=== PATIENT | male | born 1950 | race Caucasian/White ===

== ENCOUNTER 2018-02-26 05:44 | Inpatient (IN) | payer MEDICARE ==
[2018-02-26] MEDS ORDERED: Thrombin 5000 UNITS/5 ML VIAL ONE (06:24)
[2018-02-26] MEDS ORDERED: Sodium Chloride 0.9% 10 ML ONE (06:24)
[2018-02-26] MEDS ORDERED: CEFAZOLIN/Water 2 GM/20 ML SYRINGE ONE (06:32)
[2018-02-26 06:46] LABS: #Basophils 0.2 thou/uL (0.0-0.2); #Eosinphils 0.2 thou/uL (0.0-0.7); #Lymphocytes 4.5 thou/uL (1.20-3.40); #Neutrophils 4.2 thou/uL (1.40-6.50); %Basophils 1.6 % (0.0-1.0); %Eosinophils 2.5 % (0.0-10.0); %Monocytes 9.6 % (0.0-10.0); %Neutrophils 41.4 % (42.0-75.0); Hemoglobin 15.2 g/dL (14.0-18.0); Mean Corpuscular HGB CONC 33.3 g/dL (32.0-36.0); Mean Corpuscular Hemoglobin 31.7 pg (27.0-31.0); Mean Corpuscular Volume 95.1 fL (78.0-98.0); Mean Platelet Volume 9.3 fL (7.4-10.4); Platelet Count 187 thou/uL (130-400); Red Blood Cell (RBC) Count 4.81 mill/uL (4.70-6.10)
[2018-02-26 06:54] LABS: Anion Gap 11 mmol/L (10-20); BUN (Urea Nitrogen) 18 mg/dL (8.4-25.7); Calc. Creatinine Clearance 0 mL/min (70-130); Calcium 9.4 mg/dL (7.8-10.44); Carbon Dioxide 27 mmol/L (23-31); Chloride 107 mmol/L (98-107); Estimated GFR-MDRD 66; Glucose 94 mg/dL (80-115); Potassium 3.9 mmol/L (3.5-5.1); Sodium 141 mmol/L (136-145)
[2018-02-26] MEDS ORDERED: Ondansetron HCl/PF 4 MG/2 ML Vial IVP PRN ×2 (07:12→10:20)
[2018-02-26] MEDS ORDERED: Fentanyl 100 MCG/2 ML VIAL ONE ×3 (07:12→09:56)
[2018-02-26] MEDS ORDERED: Promethazine HCl 25 MG/ML VIAL IM PRN ×3 (07:12→13:38)
[2018-02-26] MEDS ORDERED: Promethazine HCl 25 MG/ML VIAL SLOW IVP PRN (07:12)
[2018-02-26] MEDS ORDERED: HYDROmorphone 2 MG/ML VIAL ONE ×2 (07:13→10:24)
--- NOTE | 2018-02-26 09:30 | OP ---
DATE OF PROCEDURE: 02/26/2018 SURGEON: Jeremías Chowdhury M.D. LEAD APPLICATIONS DEVELOPER: Magen Xiao PA-C PROCEDURE: L2 through L5 decompressive laminectomies, L2 through L5 posterolateral arthrodesis, pedi cedrick screw instrumentation L2 through L5, demineralized bone matrix, local morselized autograft. PROCEDURE IN DETAIL: The patient was brought into the operating room and intubated. He was rolled i n the prone position on gel-filled chest rolls. The previous incision was reopened and extended supe riorly exposing L2 through L5. After debridement of scar tissue, we performed additional decompressi ve laminectomy from L5 up through L2, completely decompressing the lateral recesses with particular a ttention to the right. Next, pedicle screws were placed at L2, L3, L4 and L5 bilaterally using later al fluoroscopic guidance. A francisco was secured between the screws, connected by nuts which were final t ightened. The wound was then extensively irrigated, immaculate hemostasis was secured. A combinatio n of demineralized bone matrix, local morselized autograft was laid over the laminar and posterolater al surfaces for the purpose of arthrodesis. Vancomycin powder was applied and the wound was closed i n anatomic layers over a drain.
[2018-02-26] MEDS ORDERED: Zolpidem Tartrate 5 MG TAB PO PRN (10:20)
[2018-02-26] MEDS ORDERED: diphenhydrAMINE 50 MG/ML VIAL IM PRN (10:20)
[2018-02-26] MEDS ORDERED: diphenhydrAMINE 25 MG CAP PO PRN ×2 (10:20→13:38)
[2018-02-26] MEDS ORDERED: diphenhydrAMINE 50 MG/ML VIAL IVP PRN ×2 (10:20→13:38)
[2018-02-26] MEDS ORDERED: HYDROmorphone 10 mg/100 ml CADD IVPB PRN (10:20)
[2018-02-26] MEDS ORDERED: Naloxone HCl 0.4 mg/ml Vial IV PRN (10:20)
[2018-02-26] MEDS ORDERED: Communication Order-Pharmacy FS SCH (10:30)
[2018-02-26 12:36] VITALS: BMI 30.4
[2018-02-26] MEDS ORDERED: Acetaminophen 325 MG TAB PO PRN (12:40)
[2018-02-26] MEDS ORDERED: Acetaminophen/Codeine 30-300mg Tablet PO PRN (12:42)
[2018-02-26] MEDS ORDERED: Ondansetron HCl/PF 4 MG/2 ML Vial IM PRN (13:38)
[2018-02-26] MEDS ORDERED: Mag-Al 1200 mg/1200 mg/30 ML UDCUP PO PRN (13:38)
[2018-02-26] MEDS ORDERED: Milk Of Magnesia 30 ML UDCUP PO PRN (13:38)
[2018-02-26] MEDS ORDERED: traMADol HCl 50 MG TAB PO PRN ×2 (13:38)
[2018-02-26] MEDS ORDERED: Promethazine HCl 12.5 MG SUPP PR PRN (13:38)
[2018-02-26] MEDS ORDERED: tiZANidine HCl 4 MG TAB PO PRN (13:38)
[2018-02-26] MEDS ORDERED: HYDROcodone/Acetaminophen 10/325 mg Tablet PO PRN ×2 (13:38)
[2018-02-26] MEDS ORDERED: Promethazine 25 MG TAB PO PRN (13:38)
[2018-02-26] MEDS ORDERED: CEFAZOLIN/Water 2 GM/20 ML SYRINGE SLOW IVP SCH (14:00)
[2018-02-26] MEDS: Sodium Chloride 0.9% 1,000 ML IV SCH (14:38)
--- NOTE | 2018-02-26 15:10 | PDOC.PN ---
- Subjective Encounter Start Date: 02/26/18 Encounter Start Time: 15:41 -: old records requested/rev Patient seen and examined. No new complaints. consulted for medical management - Objective Resuscitation Status: Resuscitation Status FULL:Full Resuscitation MAR Reviewed: Yes Vital Signs & Weight: Vital Signs (12 hours) Temp Pulse Resp BP Pulse Ox 02/26/18 12:45 97 02/26/18 12:10 97.4 F L 72 18 171/93 H 97 Weight Weight 200 lb Result Diagrams: 02/26/18 06:31 02/26/18 06:31 Phys Exam - Physical Examination Constitutional: NAD HEENT: PERRLA, moist MMs, sclera anicteric Neck: no JVD, supple Respiratory: no wheezing, no rales, no rhonchi Cardiovascular: RRR, no significant murmur, no rub Gastrointestinal: soft, non-tender, no distention, positive bowel sounds Musculoskeletal: no edema, pulses present Neurological: non-focal, normal sensation Lymphatic: no nodes Psychiatric: normal affect, A&O x 3 Skin: no rash, normal turgor Dx/Plan (1) S/P laminectomy Code(s): Z98.890 - OTHER SPECIFIED POSTPROCEDURAL STATES Status: Acute (2) Alcohol abuse Code(s): F10.10 - ALCOHOL ABUSE, UNCOMPLICATED Status: Chronic (3) Dyslipidemia Code(s): E78.5 - HYPERLIPIDEMIA, UNSPECIFIED Status: Chronic (4) H/O: CVA (cerebrovascular accident) Code(s): Z86.73 - PRSNL HX OF TIA (TIA), AND CEREB INFRC W/O RESID DEFICITS Status: Chronic (5) Lumbar stenosis Code(s): M48.06 - SPINAL STENOSIS, LUMBAR REGION * DO NOT USE * Status: Chronic (6) Obesity (BMI 30.0-34.9) Code(s): E66.9 - OBESITY, UNSPECIFIED Status: Chronic - Plan cont current plan of care * change coreg 12.5 mg po bid * change lisinopril 20 mg po daily * add lipitor, lexapro, gabapentin as per home dose * code status- full code * medication reviewed as below * symptomatic treatment * PT/OT as per primary team * post operative care as per surgeon. Review of Systems - Review of Systems ENT: negative: Ear Pain, Ear Discharge, Nose Pain, Nose Discharge, Nose Congestion, Mouth Pain, Mouth Swelling, Throat Pain, Throat Swelling, Other Respiratory: negative: Cough, Dry, Shortness of Breath, Hemoptysis, SOB with Excertion, Pleuritic Pain, Sputum, Wheezing Cardiovascular: negative: chest pain, palpitations, orthopnea, paroxysmal nocturnal dyspnea, edema, light headedness, other Gastrointestinal: negative: Nausea, Vomiting, Abdominal Pain, Diarrhea, Constipation, Melena, Hematochezia, Other Genitourinary: negative: Dysuria, Frequency, Incontinence, Hematuria, Retention , Other Musculoskeletal: negative: Neck Pain, Shoulder Pain, Arm Pain, Back Pain, Hand Pain, Leg Pain, Foot Pain, Other Skin: negative: Rash, Lesions, Miguel, Bruising, Other - Medications/Allergies Allergies/Adverse Reactions: Allergies Allergy/AdvReac Type Severity Reaction Status Date / Time No Known Allergies Allergy Verified 02/26/18 12:31 Medications: Current Medications Acetaminophen (Tylenol) 650 mg PO Q4H PRN PRN Reason: Headache/Fever or Pain Al Hydroxide/Mg Hydroxide (Maalox) 30 ml PO Q4H PRN PRN Reason: Heartburn or Indigestion Atorvastatin Calcium (Lipitor) 10 mg PO HS [facility] Atorvastatin Calcium (Lipitor) 10 mg PO HS [facility] Carvedilol (Coreg) 12.5 mg PO BID-WM [facility] Cefazolin Sodium (Ancef) 2 gm SLOW IVP Q8HR [facility] Stop: 02/26/18 22:01 Last Admin: 02/26/18 14:39 Dose: 2 gm Cyanocobalamin (Vitamin B-12) 1,000 mcg PO DAILY [facility] Diphenhydramine HCl (Benadryl) 25 mg IM Q3H PRN PRN Reason: Itching Diphenhydramine HCl (Benadryl) 25 mg PO Q6H PRN PRN Reason: Itching Diphenhydramine HCl (Benadryl) 25 mg IVP Q6H PRN PRN Reason: Itching Folic Acid (Folvite) 1 mg PO DAILY [facility] Gabapentin (Neurontin) 300 mg PO TID [facility] Hydromorphone HCl (Dilaudid Cadd) 0 mg IVPB INF PRN PRN Reason: Pain Sodium Chloride (Normal Saline 0.9%) 1,000 mls @ 75 mls/hr IV .[id number] [facility] Last Admin: 02/26/18 14:38 Dose: 1,000 mls Iron/Minerals/Multivitamins (Theragran M) 1 tab PO DAILY [facility] Lisinopril (Zestril) 20 mg PO DAILY [facility] Magnesium Hydroxide (Milk Of Magnesium) 30 ml PO Q12H PRN PRN Reason: Constipation Naloxone HCl (Narcan) 0.2 mg IV Q5MIN PRN PRN Reason: Opiate Reversal Non-Formulary Medication (Escitalopram Oxalate [Escitalopram Oxalate]) 5 mg PO DAILY [facility] Ondansetron HCl (Zofran) 4 mg IVP Q6H PRN PRN Reason: Nausea/Vomiting Ondansetron HCl (Zofran) 4 mg IM Q24H PRN PRN Reason: Nausea/Vomiting Pantoprazole Sodium (Protonix) 40 mg PO DAILY [facility] Promethazine HCl (Phenergan) 12.5 mg IM Q4H PRN PRN Reason: Nausea/Vomiting Promethazine HCl (Phenergan) 12.5 mg PO Q4H PRN PRN Reason: Nausea/Vomiting Promethazine HCl (Phenergan Suppository) 12.5 mg [place] Q4H PRN PRN Reason: Nausea/Vomiting Sodium Chloride (Flush - Normal Saline) 10 ml IVF PRN PRN PRN Reason: Saline Flush Thiamine HCl (Thiamine) 100 mg PO DAILY [facility] Tizanidine HCl (Zanaflex) 4 mg PO Q6H PRN PRN Reason: MUSCLE SPASM Zolpidem Tartrate (Ambien) 5 mg PO HSPRN PRN PRN Reason: Insomnia
[2018-02-26] MEDS ORDERED: Dexamethasone 20 MG/5 ML VIAL ONE (16:50)
[2018-02-26] MEDS ORDERED: PHENYLEPHRINE-NS 100 MCG/ML 10 ML SYRINGE ONE (16:50)
[2018-02-26] MEDS ORDERED: ePHEDrine/0.9% NaCl/PF SYRINGE 50 mg/10 ml ONE (16:50)
[2018-02-26] MEDS ORDERED: Lidocaine 1% PF 5 ML VIAL ONE (16:50)
[2018-02-26] MEDS ORDERED: Glycopyrrolate 0.2 MG/ML 5 ML SYRINGE ONE (16:50)
[2018-02-26] MEDS ORDERED: PROPOFOL 200 MG/20 ML VIAL ONE (16:50)
[2018-02-26] MEDS ORDERED: Ketorolac Tromethamine 30 MG/ML VIAL ONE (16:50)
[2018-02-26] MEDS ORDERED: Ondansetron HCl/PF 4 MG/2 ML Vial ONE (16:50)
[2018-02-26] MEDS: Carvedilol 6.25 MG TAB PO SCH (16:53)
[2018-02-26] MEDS ORDERED: Carvedilol 6.25 MG TAB PO SCH (17:00)
[2018-02-26] MEDS ORDERED: Tamsulosin HCl 0.4 MG CAP PO SCH (19:00)
[2018-02-26] MEDS ORDERED: Atorvastatin Calcium 10 MG TAB PO SCH (21:00)
[2018-02-26] MEDS: Atorvastatin Calcium 10 MG TAB PO SCH (21:07)
[2018-02-26] MEDS: Gabapentin 300 MG CAP PO SCH (21:08)
[2018-02-26] MEDS: CEFAZOLIN/Water 2 GM/20 ML SYRINGE SLOW IVP SCH (21:09)
[2018-02-27] MEDS: CEFAZOLIN/Water 2 GM/20 ML SYRINGE SLOW IVP SCH ×3 (06:27→21:36)
--- NOTE | 2018-02-27 06:52 | PRG ---
DATE OF SERVICE: 02/27/2018 PROGRESS NOTE: The patient is a 67-year-old male status post L2-L5 decompression and fusion, postoperative day #1. Yesterday, the patient did have some postoperative pain control issues, so he was started on a RAIL TRANSPORTATION OPERATOR pump. Since that time, he reports he has had significant improvement in his discomfort. His pain is primarily at the surgical incision site. He actually has improvement in his bilateral leg pain since surgery, particularly with ambulating. He also did have some difficulty voiding yesterday evening with post-void residual of 500 on bladder scan. Therefore, I&O cath was done x1. Since then he was also treated with p.o. Flomax. Since that time, he has had significant improvement and is now voiding without difficulty on his own. Overnight, he had 180 mL out of his MALGORZATA drain. He is sitting in bed comfortably in no acute distress. Dressing is dry. There is some dark red blood in the MALGORZATA drain. He has free active range of motion of all extremities, 5/5 strength. We will plan continue to monitor him at the MALGORZATA drain output. We will transition from the RAIL TRANSPORTATION OPERATOR pump to oral pain medications. We will continue to mobilize with the assistance of Physical Therapy and advance his diet. I anticipate discharge home in the next few days. ISADORA
[2018-02-27] MEDS: Sodium Chloride 0.9% 1,000 ML IV SCH ×2 (07:31→19:57)
[2018-02-27] MEDS: Multivitamin W/ Minerals 1 TAB PO SCH (07:55)
[2018-02-27] MEDS: Escitalopram Oxalate 10 mg Tablet PO SCH (07:55)
[2018-02-27] MEDS: Cyanocobalamin (Vitamin B-12) 1,000 MCG TAB PO SCH (07:55)
[2018-02-27] MEDS: Carvedilol 6.25 MG TAB PO SCH ×2 (07:56→19:56)
[2018-02-27] MEDS: Gabapentin 300 MG CAP PO SCH ×3 (07:57→21:36)
[2018-02-27] MEDS: Tamsulosin HCl 0.4 MG CAP PO SCH (07:57)
[2018-02-27] MEDS: Lisinopril 10 MG TAB PO SCH (07:57)
[2018-02-27] MEDS: Folic Acid 1 MG TAB PO SCH (07:57)
[2018-02-27] MEDS ORDERED: Lisinopril 10 MG TAB PO SCH (09:00)
--- NOTE | 2018-02-27 09:34 | EKG ---
Test Reason : PREOP Blood Pressure : / mmHG Vent. Rate : 062 BPM Atrial Rate : 062 BPM P-R Int : 184 ms QRS Dur : 084 ms QT Int : 436 ms P-R-T Axes : 021 -01 027 degrees QTc Int : 442 ms Normal sinus rhythm Normal ECG When compared with ECG of 19-DEC-2014 14:24, No significant change was found Confirmed by MARIANELA HERNANDEZ ([id number]) on 02/27/2018 9:33:42 AM Referred By: TREE Confirmed By:MARIANELA HERNANDEZ
--- NOTE | 2018-02-27 10:44 | PDOC.PN ---
- Subjective Encounter Start Date: 02/27/18 Encounter Start Time: 08:30 Patient seen and examined. No new complaints. No overnight events he still on CIRCULAR TANK COOPER he still has back drain - Objective Resuscitation Status: Resuscitation Status FULL:Full Resuscitation MAR Reviewed: Yes Vital Signs & Weight: Vital Signs (12 hours) Temp Pulse Resp BP Pulse Ox 02/27/18 08:00 98.5 F 77 16 149/74 H 98 02/27/18 04:00 98.5 F 83 16 137/76 99 02/26/18 23:42 97.7 F 83 16 151/75 H 96 Weight Weight 200 lb I&O: 02/26/18 02/27/18 02/28/18 06:59 06:59 06:59 Intake Total 1485 1350 Output Total 850 1175 Balance 635 175 Result Diagrams: 02/26/18 06:31 02/26/18 06:31 Phys Exam - Physical Examination Constitutional: NAD HEENT: PERRLA, moist MMs, sclera anicteric Neck: no JVD, supple Respiratory: no wheezing, no rales, no rhonchi Cardiovascular: RRR, no significant murmur, no rub Gastrointestinal: soft, non-tender, no distention, positive bowel sounds Musculoskeletal: no edema, pulses present back drain at surgical site Neurological: non-focal, normal sensation, moves all 4 limbs Lymphatic: no nodes Psychiatric: normal affect, A&O x 3 Skin: no rash, normal turgor Dx/Plan (1) S/P laminectomy Code(s): Z98.890 - OTHER SPECIFIED POSTPROCEDURAL STATES Status: Acute (2) Alcohol abuse Code(s): F10.10 - ALCOHOL ABUSE, UNCOMPLICATED Status: Chronic (3) Dyslipidemia Code(s): E78.5 - HYPERLIPIDEMIA, UNSPECIFIED Status: Chronic (4) H/O: CVA (cerebrovascular accident) Code(s): Z86.73 - PRSNL HX OF TIA (TIA), AND CEREB INFRC W/O RESID DEFICITS Status: Chronic (5) Lumbar stenosis Code(s): M48.06 - SPINAL STENOSIS, LUMBAR REGION * DO NOT USE * Status: Chronic (6) Obesity (BMI 30.0-34.9) Code(s): E66.9 - OBESITY, UNSPECIFIED Status: Chronic - Plan cont current plan of care, PT/OT * medication reviewed as below * symptomatic treatment * continue shirt maker for pain control * ambulate with PT * drain as per primary team * discharge will defer to primary team. Review of Systems - Review of Systems Eyes: negative: Pain, Vision Change, Conjunctivae Inflammation, Eyelid Inflammation, Redness, Other ENT: negative: Ear Pain, Ear Discharge, Nose Pain, Nose Discharge, Nose Congestion, Mouth Pain, Mouth Swelling, Throat Pain, Throat Swelling, Other Respiratory: negative: Cough, Dry, Shortness of Breath, Hemoptysis, SOB with Excertion, Pleuritic Pain, Sputum, Wheezing Cardiovascular: negative: chest pain, palpitations, orthopnea, paroxysmal nocturnal dyspnea, edema, light headedness, other Gastrointestinal: negative: Nausea, Vomiting, Abdominal Pain, Diarrhea, Constipation, Melena, Hematochezia, Other Genitourinary: negative: Dysuria, Frequency, Incontinence, Hematuria, Retention , Other Musculoskeletal: Back Pain. negative: Neck Pain, Shoulder Pain, Arm Pain, Hand Pain, Leg Pain, Foot Pain, Other - Medications/Allergies Allergies/Adverse Reactions: Allergies Allergy/AdvReac Type Severity Reaction Status Date / Time No Known Allergies Allergy Verified 02/26/18 12:31 Medications: Current Medications Acetaminophen (Tylenol) 650 mg PO Q4H PRN PRN Reason: Headache/Fever or Pain Al Hydroxide/Mg Hydroxide (Maalox) 30 ml PO Q4H PRN PRN Reason: Heartburn or Indigestion Atorvastatin Calcium (Lipitor) 10 mg PO HS [facility] Last Admin: 02/26/18 21:07 Dose: 10 mg Carvedilol (Coreg) 12.5 mg PO BID-WM [facility] Last Admin: 02/27/18 07:56 Dose: 12.5 mg Cefazolin Sodium (Ancef) 2 gm SLOW IVP Q8HR [facility] Last Admin: 02/27/18 06:27 Dose: 2 gm Cyanocobalamin (Vitamin B-12) 1,000 mcg PO DAILY [facility] Last Admin: 02/27/18 07:55 Dose: 1,000 mcg Diphenhydramine HCl (Benadryl) 25 mg IM Q3H PRN PRN Reason: Itching Diphenhydramine HCl (Benadryl) 25 mg PO Q6H PRN PRN Reason: Itching Diphenhydramine HCl (Benadryl) 25 mg IVP Q6H PRN PRN Reason: Itching Escitalopram Oxalate (Lexapro) 5 mg PO DAILY [facility] Last Admin: 02/27/18 07:55 Dose: 5 mg Folic Acid (Folvite) 1 mg PO DAILY [facility] Last Admin: 02/27/18 07:57 Dose: 1 mg Gabapentin (Neurontin) 300 mg PO TID [facility] Last Admin: 02/27/18 07:57 Dose: 300 mg Hydromorphone HCl (Dilaudid Cadd) 0 mg IVPB INF PRN PRN Reason: Pain Sodium Chloride (Normal Saline 0.9%) 1,000 mls @ 75 mls/hr IV .[id number] [facility] Last Admin: 02/27/18 07:31 Dose: Not Given Iron/Minerals/Multivitamins (Theragran M) 1 tab PO DAILY [facility] Last Admin: 02/27/18 07:55 Dose: 1 tab Lisinopril (Zestril) 20 mg PO DAILY [facility] Last Admin: 02/27/18 07:57 Dose: 20 mg Magnesium Hydroxide (Milk Of Magnesium) 30 ml PO Q12H PRN PRN Reason: Constipation Naloxone HCl (Narcan) 0.2 mg IV Q5MIN PRN PRN Reason: Opiate Reversal Ondansetron HCl (Zofran) 4 mg IVP Q6H PRN PRN Reason: Nausea/Vomiting Ondansetron HCl (Zofran) 4 mg IM Q24H PRN PRN Reason: Nausea/Vomiting Pantoprazole Sodium (Protonix) 40 mg PO DAILY [facility] Last Admin: 02/27/18 07:56 Dose: 40 mg Promethazine HCl (Phenergan) 12.5 mg IM Q4H PRN PRN Reason: Nausea/Vomiting Promethazine HCl (Phenergan) 12.5 mg PO Q4H PRN PRN Reason: Nausea/Vomiting Promethazine HCl (Phenergan Suppository) 12.5 mg [place] Q4H PRN PRN Reason: Nausea/Vomiting Sodium Chloride (Flush - Normal Saline) 10 ml IVF PRN PRN PRN Reason: Saline Flush Tamsulosin HCl (Flomax) 0.4 mg PO QAM [facility] Last Admin: 02/27/18 07:57 Dose: 0.4 mg Thiamine HCl (Thiamine) 100 mg PO DAILY [facility] Last Admin: 10/16/18 07:56 Dose: 100 mg Tizanidine HCl (Zanaflex) 4 mg PO Q6H PRN PRN Reason: MUSCLE SPASM Zolpidem Tartrate (Ambien) 5 mg PO HSPRN PRN PRN Reason: Insomnia
[2018-02-27] MEDS ORDERED: HYDROcodone/Acetaminophen 10/325 mg Tablet PO PRN ×2 (13:44)
[2018-02-27] MEDS ORDERED: traMADol HCl 50 MG TAB PO PRN (13:45)
[2018-02-27] MEDS: traMADol HCl 50 MG TAB PO PRN (14:42)
[2018-02-27] MEDS: Atorvastatin Calcium 10 MG TAB PO SCH (21:36)
[2018-02-28] MEDS: CEFAZOLIN/Water 2 GM/20 ML SYRINGE SLOW IVP SCH (05:52)
[2018-02-28] MEDS: Sodium Chloride 0.9% 1,000 ML IV SCH (05:52)
[2018-02-28] MEDS: traMADol HCl 50 MG TAB PO PRN (07:11)
--- NOTE | 2018-02-28 07:19 | DIS ---
DATE OF ADMISSION: 02/26/2018 DATE OF DISCHARGE: 02/28/2018 ATTENDING PHYSICIAN: Dr. Jeremías Chowdhury HOSPITAL COURSE: Patient is a 67-year-old male status post L2-L5 decompression and fusion. Following his surgery he was admitted to the Med/ Surg floor where he was monitored closely, pain was well controlled initially with a RN ELIGIBILITY pump, but then the patient was transitioned to oral pain medications , and he was tolerating a regular diet. Initially, the patient did have episode of urinary retention which required straight cath, but this resolved with the addition of Flomax and with time. His MALGORZATA drain output trended down nicely and overnight he had only had 95 mL out on postoperative day evening #2. We will plan to remove the MALGORZATA drain this morning and dismiss the patient to home. I am visiting with the patient this morning at the bedside. He is awake, alert , in no acute distress. He has free active range of motion of all extremities. 5/5 strength throughout. Sensation is intact to light touch. His dressing remains dry. There is only a very small amount of light red blood in the MALGORZATA drain at this time. We will plan to dismiss the patient to home today. I have discussed home care precautions and will plan to follow up with the patient in 2 weeks in the office. I have provided the patient with a script for hydrocodone, Zanaflex, Keflex. Please reach out to Neurosurgery for additional questions or concerns. ISADORA
[2018-02-28] MEDS: Escitalopram Oxalate 10 mg Tablet PO SCH (08:38)
[2018-02-28] MEDS: Gabapentin 300 MG CAP PO SCH (08:38)
[2018-02-28] MEDS: Tamsulosin HCl 0.4 MG CAP PO SCH (08:38)
[2018-02-28] MEDS: Folic Acid 1 MG TAB PO SCH (08:38)
[2018-02-28] MEDS: Multivitamin W/ Minerals 1 TAB PO SCH (08:39)
[2018-02-28] MEDS: Lisinopril 10 MG TAB PO SCH (08:39)
[2018-02-28] MEDS: Cyanocobalamin (Vitamin B-12) 1,000 MCG TAB PO SCH (08:40)
[2018-02-28] MEDS: Carvedilol 6.25 MG TAB PO SCH (08:40)
--- NOTE | 2018-02-28 10:48 | PRG ---
PROGRESS/SIGN OFF NOTE PRIMARY CARE PHYSICIAN: ____ DATE OF ADMISSION: 02/26/2018 DATE OF DISCHARGE: 02/28/2018 DISCHARGE DISPOSITION: Home. PRIMARY DISCHARGE DIAGNOSIS: Status post lumbar laminectomy L2 through L5. SECONDARY DISCHARGE DIAGNOSES: History of cerebrovascular accident, hypertension, dyslipidemia, alco hol abuse, chronic lumber stenosis, obesity with BMI 30. PRIMARY PROCEDURES/OPERATIONS: Decompressive lumbar laminectomy by Dr. Chowdhury. RADIOLOGICAL INVESTIGATION: None. SIGNIFICANT LABORATORY DATA: WBC 10.0, hemoglobin 15.2, platelet 187. Sodium 141, potassium 3.9, BU N 18, creatinine 1.11, calcium 9.4. DISCHARGE MEDICATIONS: The patient will hold aspirin for another 2 weeks, tramadol 50 mg q.6 hourly p.r.n., Coreg 12.5 mg p.o. b.i.d., Lexapro 5 mg p.o. daily, folic acid 1 mg daily, gabapentin 300 mg p.o. t.i.d., lisinopril 20 mg p.o. daily, thiamine 250 mg p.o. daily, Lipitor 10 mg p.o. at bedtime, vitamin B12 1000 mcg p.o. daily. Pain medication will defer to primary team. CONTRAINDICATIONS: None. CODE STATUS: FULL CODE. INPATIENT CONSULTANTS: Dr. Chowdhury was primary. Sound Team was consulted for medical comanagement. TEST RESULTS PENDING ON DISCHARGE: None. ALLERGIES: No known drug allergy. DISCHARGE PLAN: Post hospital, the patient will follow up with Dr. Chowdhury as instructed and primar care physician in 1 week. HOSPITAL COURSE: A 67-year-old male with above-mentioned medical problem who was electively admitted by Dr. Chowdhury for a decompressive lumbar laminectomy for lumbar stenosis which was done on 018. Postoperatively, he had drain in place. He required THERMAL SURFACING MACHINE OPERATOR for pain control. He did very well in next 24-48 hours after surgery. His THERMAL SURFACING MACHINE OPERATOR was turned off and his pain was controlled with oral pain m edication. His drain was removed before discharge. The patient is doing very well. While in the hospital we continued all his home medications except a spirin, which will be held for another 2 weeks and then he can resume aspirin when neurosurgeon okay. I have seen and examined this patient, his examination is completely normal. His review of systems a re completely negative. I have explained plan of care to patient as well as the patient's at [facility]. We will sign off.
--- NOTE | 2018-02-28 11:41 | PDOC.PN ---
- Subjective Encounter Start Date: 02/28/18 Encounter Start Time: 08:30 Patient seen and examined. No new complaints. No overnight events - Objective Resuscitation Status: Resuscitation Status FULL:Full Resuscitation MAR Reviewed: Yes Vital Signs & Weight: Vital Signs (12 hours) Temp Pulse Resp BP BP Pulse Ox 02/28/18 08:40 158/90 H 02/28/18 08:39 158/90 H 02/28/18 07:44 98.3 F 63 12 170/76 H 100 02/28/18 04:00 98.2 F 65 16 137/71 97 02/28/18 00:00 97.7 F 63 16 119/64 100 Weight Weight 200 lb I&O: 02/27/18 02/28/18 03/01/18 06:59 06:59 06:59 Intake Total 1485 2100 320 Output Total 850 2500 Balance 635 -400 320 Result Diagrams: 02/26/18 06:31 02/26/18 06:31 Phys Exam - Physical Examination Constitutional: NAD HEENT: PERRLA, moist MMs, sclera anicteric Neck: no JVD, supple Respiratory: no wheezing, no rales, no rhonchi Cardiovascular: RRR, no significant murmur, no rub Gastrointestinal: soft, non-tender, no distention, positive bowel sounds Musculoskeletal: no edema, pulses present Neurological: non-focal, normal sensation, moves all 4 limbs Psychiatric: normal affect, A&O x 3 Skin: no rash, normal turgor Dx/Plan (1) S/P laminectomy Code(s): Z98.890 - OTHER SPECIFIED POSTPROCEDURAL STATES Status: Acute (2) Alcohol abuse Code(s): F10.10 - ALCOHOL ABUSE, UNCOMPLICATED Status: Chronic (3) Dyslipidemia Code(s): E78.5 - HYPERLIPIDEMIA, UNSPECIFIED Status: Chronic (4) H/O: CVA (cerebrovascular accident) Code(s): Z86.73 - PRSNL HX OF TIA (TIA), AND CEREB INFRC W/O RESID DEFICITS Status: Chronic (5) Lumbar stenosis Code(s): M48.06 - SPINAL STENOSIS, LUMBAR REGION * DO NOT USE * Status: Chronic (6) Obesity (BMI 30.0-34.9) Code(s): E66.9 - OBESITY, UNSPECIFIED Status: Chronic - Plan cont current plan of care, plan discussed w/ family * medication reviewed as below * symptomatic treatment * see my dictation report Review of Systems - Review of Systems Eyes: negative: Pain, Vision Change, Conjunctivae Inflammation, Eyelid Inflammation, Redness, Other ENT: negative: Ear Pain, Ear Discharge, Nose Pain, Nose Discharge, Nose Congestion, Mouth Pain, Mouth Swelling, Throat Pain, Throat Swelling, Other Respiratory: negative: Cough, Dry, Shortness of Breath, Hemoptysis, SOB with Excertion, Pleuritic Pain, Sputum, Wheezing Cardiovascular: negative: chest pain, palpitations, orthopnea, paroxysmal nocturnal dyspnea, edema, light headedness, other Gastrointestinal: negative: Nausea, Vomiting, Abdominal Pain, Diarrhea, Constipation, Melena, Hematochezia, Other Genitourinary: negative: Dysuria, Frequency, Incontinence, Hematuria, Retention , Other Musculoskeletal: negative: Neck Pain, Shoulder Pain, Arm Pain, Back Pain, Hand Pain, Leg Pain, Foot Pain, Other - Medications/Allergies Allergies/Adverse Reactions: Allergies Allergy/AdvReac Type Severity Reaction Status Date / Time No Known Allergies Allergy Verified 02/26/18 12:31 Medications: Current Medications Acetaminophen (Tylenol) 650 mg PO Q4H PRN PRN Reason: Headache/Fever or Pain Last Admin: 02/27/18 14:42 Dose: 650 mg Hydrocodone Bitart/Acetaminophen ([place] 10/325) 1 tab PO Q4H PRN PRN Reason: Pain 2-5 Last Admin: 02/28/18 11:27 Dose: 1 tab Hydrocodone Bitart/Acetaminophen ([place] 10/325) 2 tab PO Q4H PRN PRN Reason: Pain 6-10 Last Admin: 02/28/18 02:13 Dose: 2 tab Al Hydroxide/Mg Hydroxide (Maalox) 30 ml PO Q4H PRN PRN Reason: Heartburn or Indigestion Atorvastatin Calcium (Lipitor) 10 mg PO HS [facility] Last Admin: 02/27/18 21:36 Dose: 10 mg Carvedilol (Coreg) 12.5 mg PO BID-WM [facility] Last Admin: 02/28/18 08:40 Dose: 12.5 mg Cefazolin Sodium (Ancef) 2 gm SLOW IVP Q8HR [facility] Last Admin: 02/28/18 05:52 Dose: 2 gm Cyanocobalamin (Vitamin B-12) 1,000 mcg PO DAILY [facility] Last Admin: 02/28/18 08:40 Dose: 1,000 mcg Diphenhydramine HCl (Benadryl) 25 mg IM Q3H PRN PRN Reason: Itching Diphenhydramine HCl (Benadryl) 25 mg PO Q6H PRN PRN Reason: Itching Diphenhydramine HCl (Benadryl) 25 mg IVP Q6H PRN PRN Reason: Itching Escitalopram Oxalate (Lexapro) 5 mg PO DAILY [facility] Last Admin: 02/28/18 08:38 Dose: 5 mg Folic Acid (Folvite) 1 mg PO DAILY [facility] Last Admin: 02/28/18 08:38 Dose: 1 mg Gabapentin (Neurontin) 300 mg PO TID [facility] Last Admin: 02/28/18 08:38 Dose: 300 mg Sodium Chloride (Normal Saline 0.9%) 1,000 mls @ 75 mls/hr IV .[id number] [facility] Last Admin: 02/28/18 05:52 Dose: Not Given Iron/Minerals/Multivitamins (Theragran M) 1 tab PO DAILY [facility] Last Admin: 02/28/18 08:39 Dose: 1 tab Lisinopril (Zestril) 20 mg PO DAILY [facility] Last Admin: 02/28/18 08:39 Dose: 20 mg Magnesium Hydroxide (Milk Of Magnesium) 30 ml PO Q12H PRN PRN Reason: Constipation Last Admin: 02/27/18 14:37 Dose: 30 ml Naloxone HCl (Narcan) 0.2 mg IV Q5MIN PRN PRN Reason: Opiate Reversal Ondansetron HCl (Zofran) 4 mg IVP Q6H PRN PRN Reason: Nausea/Vomiting Ondansetron HCl (Zofran) 4 mg IM Q24H PRN PRN Reason: Nausea/Vomiting Pantoprazole Sodium (Protonix) 40 mg PO DAILY [facility] Last Admin: 02/28/18 08:40 Dose: 40 mg Promethazine HCl (Phenergan) 12.5 mg IM Q4H PRN PRN Reason: Nausea/Vomiting Promethazine HCl (Phenergan) 12.5 mg PO Q4H PRN PRN Reason: Nausea/Vomiting Promethazine HCl (Phenergan Suppository) 12.5 mg NE Q4H PRN PRN Reason: Nausea/Vomiting Sodium Chloride (Flush - Normal Saline) 10 ml IVF PRN PRN PRN Reason: Saline Flush Tamsulosin HCl (Flomax) 0.4 mg PO QAM [facility] Last Admin: 02/28/18 08:38 Dose: 0.4 mg Thiamine HCl (Thiamine) 100 mg PO DAILY [facility] Last Admin: 02/28/18 08:39 Dose: 100 mg Tizanidine HCl (Zanaflex) 4 mg PO Q6H PRN PRN Reason: MUSCLE SPASM Tramadol HCl (Ultram) 50 mg PO Q6H PRN PRN Reason: Pain 2-5 Tramadol HCl (Ultram) 100 mg PO Q6H PRN PRN Reason: Pain 6-10 Last Admin: 02/28/18 07:11 Dose: 100 mg Zolpidem Tartrate (Ambien) 5 mg PO HSPRN PRN PRN Reason: Insomnia
[2018-02-28 11:54] VITALS: BP 117/66; TEMP 98
== END 2018-02-28 11:56 | disposition home or self-care (01) | DRG 460 ==
LOC: SURG A 05:44 → SJJU 12:24 → EDSTATUS 14:45
PROVIDERS: ADMIT Neurological Surgery; ATTEND Neurological Surgery
PROC: 0SG1071 Fusion of 2 or more Lumbar Vertebral Joints with Autologous Tissue Substitute, Posterior Approach, Posterior Column, Open Approach (ICD-10-PCS; principal; 2018-02-26)
PROC: 00NY0ZZ Release Lumbar Spinal Cord, Open Approach (ICD-10-PCS; 2018-02-26)
PROC: 3E0T3BZ Introduction of Anesthetic Agent into Peripheral Nerves and Plexi, Percutaneous Approach (ICD-10-PCS; 2018-02-26)
DX: M48.062 Spinal stenosis, lumbar region with neurogenic claudication (principal); I69.351 Hemiplegia and hemiparesis following cerebral infarction affecting right dominant side; I10 Essential (primary) hypertension; E78.5 Hyperlipidemia, unspecified; F10.10 Alcohol abuse, uncomplicated; E66.9 Obesity, unspecified; Z68.30 Body mass index [BMI] 30.0-30.9, adult; M43.16 Spondylolisthesis, lumbar region; G89.29 Other chronic pain; M19.90 Unspecified osteoarthritis, unspecified site
CPT/HCPCS: 36415; 76001; 80048; 85025; 90471; 90662; 93005; 93010; C1713; C1768; G0008; G8978-GP-CJ; G8979-GP-CJ; G8980-GP-CJ; J1100; J1170; J1200; J1885; J2001; J2405; J2704; J3010; J3370; J3490

== ENCOUNTER 2018-03-13 14:58 | Outpatient (CLI) | payer MEDICARE ==
--- NOTE | 2018-03-13 16:44 | RAD ---
LUMBAR SPINE TWO VIEWS: 03/13/18 HISTORY: 67-year-old male with history of low back pain, M54.5, several weeks status post surgery. COMPARISON: 10/30/15. FINDINGS: Extensive laminectomy with pedicle screws at L2, L3, L4 and L5. There appears to be some dorsal soft tissue swelling at the level of the operative site. No significant malalignment. Extensive spondylosi s. There is some scattered air fluid levels within the colon. IMPRESSION: Status post laminectomy and pedicle screw placement changes at L2 through L5 with some soft tissue sw elling dorsally at the level of the operative site. POS: [facility]OLO
== END 2018-03-13 14:59 | disposition home or self-care (01) ==
LOC: TBSIIMAG 14:58
PROVIDERS: ATTEND Neurological Surgery
DX: M54.5 Low back pain (principal); M79.89 Other specified soft tissue disorders; Z98.890 Other specified postprocedural states
CPT/HCPCS: 72100

== ENCOUNTER 2018-04-24 14:09 | Outpatient (CLI) | payer MEDICARE ==
--- NOTE | 2018-04-24 16:23 | RAD ---
2 VIEWS LUMBOSACRAL SPINE: Date: 04/24/18 COMPARISON: 03/13/18. HISTORY: Lumbar fusion. Follow-up examination. FINDINGS: AP and lateral views of the lumbosacral spine show the patient to be status post posterior fusion of L2 through L5 with bilateral pedicle screws. No perihardware lucency is seen. Vertebral bodies demons trate normal height. There is Grade I retrolisthesis of L2 on L3. These findings are unchanged compar ed to the prior examination. Vascular calcifications are seen in the aorta. The patient has a left hip prosthesis. Laminectomies h ave been performed in the lower lumbosacral spine. IMPRESSION: Stable postsurgical changes of the lumbar spine. POS: PAOLO
== END 2018-04-24 14:10 | disposition home or self-care (01) ==
LOC: TBSIIMAG 14:09
PROVIDERS: ATTEND Neurological Surgery
DX: M51.36 Other intervertebral disc degeneration, lumbar region (principal); Z98.1 Arthrodesis status
CPT/HCPCS: 72100

== ENCOUNTER 2018-07-26 09:53 | Outpatient (CLI) | payer MEDICARE ==
--- NOTE | 2018-07-26 11:11 | RAD ---
LUMBAR SPINE TWO VIEWS: HISTORY: Postoperative followup. COMPARISON: 04/24/2018 FINDINGS: AP and lateral views of the lumbar spine demonstrate pedicle screws and rods stabilizing L2 through L 5. Generalized spondylosis. No significant malalignment. IMPRESSION: Stable postoperative changes at L2 through L5. No significant malalignment. POS: TPC
== END 2018-07-26 09:54 | disposition home or self-care (01) ==
LOC: TBSIIMAG 09:53
PROVIDERS: ATTEND Neurological Surgery
DX: M48.062 Spinal stenosis, lumbar region with neurogenic claudication (principal); Z98.890 Other specified postprocedural states
CPT/HCPCS: 72100